=== PATIENT | male | born 1980 | race Caucasian/White ===

== ENCOUNTER 2024-12-20 11:59 | Emergency (ER) | payer OTHER, SELFPAY ==
--- NOTE | ~2024-12-20 | CT_ITS ---
CLINICAL HISTORY: syncopal episode, headache CT head without contrast Comparison: None provided Findings: No intra-axial mass, midline shift, hydrocephalus, or acute hemorrhage. No significant atrophy-like change or white matter disease. The visualized paranasal sinuses and mastoid air cells are normal. The orbits are within normal limits. There is no acute fracture. IMPRESSION: 1. No acute intracranial findings. This document has been electronically signed by: Padmini Freitas MD on 12/20/2024 15:29:23
[2024-12-20 12:07] VITALS: BP 128/75; PULSE 83; RESP 18; TEMP 36.7; O2SAT 99; BMI 25.7
--- NOTE | 2024-12-20 12:12 | ED.GENADULT ---
HPI - General Adult General Chief complaint: Syncope Stated complaint: dizziness, fainted 12/18, every time he gets up Time Seen by Provider: 12/20/24 13:46 History of Present Illness ED Provider: Kwan RAJAN narrative: The patient is a 44-year-old male who is on an antidepressant medication but no other medications and who does not have any other significant past medical history. The patient says that over the past few weeks he has had episodes of dizzy spells. He has had 2 or 3 dizzy spells over the last 2 weeks that seemed to be related to standing up or position changes. Two days ago, on Saturday evening, he was home. He has been looking at his phone while sitting down for awhile. He was in his living room. He got up to talk to his in the kitchen. He says that he stood up and walked to the kitchen and then felt a fairly intense kind of dizziness that he describes as room spinning dizziness. He told his he felt dizzy. She says that he seemed to briefly pass out and collapse. He fell and hit his head at the time. She thought that he was unconscious and slapped him on his chest at which point he woke up. He apparently asked her if he had been asleep but otherwise awoke with a normal mental status. The the patient's at that time wanted to call 911 but the patient dissuaded her. He apparently told her that he felt fine and did not want to go to the hospital. He had no significant headache. He stayed home that evening but yesterday morning had another episode of dizziness which was not associated with the passing out. At that point he had his went to an urgent care center where they were referred to the emergency room at [facility]. They went to the emergency room at [facility] but after 14 hours of waiting in the waiting room they left and went home. They came here this morning instead. Today the patient says that he has developed a headache. It feels similar to previous migraine headaches. He says he often gets significant migraine headaches that he mostly manages at home with [id number] medications and resting in a dark room. He does not feel that he has any neck stiffness but he does feel that he has some pain in the right anterior neck that is worse when he turns his head to the left. He says that he noticed this pain yesterday while waiting in the waiting room at [facility] and he thought that perhaps it was related to a cool breeze in the waiting room. The patient has a history of nystagmus. Related Data Allergies Allergy/AdvReac Type Severity Reaction Status Date / Time No Known Allergies Allergy Verified 12/20/24 12:11 Review of Systems Review of Systems: Yes all other systems are reviewed and are negative [facility] Social History Social History Smoked in Last 30 Days: No Use of substances other than those prescribed or required for medical reasons: No Advance Directives: No Advance Directives Information Provided: No Do you have a plan to hurt others: No Plan Physical Exam ED Vital Signs: Vital Signs - 24 hr 12/20/24 12:07 12/20/24 14:01 12/20/24 14:02 Temperature 98.0 F Pulse Rate 83 68 69 Respiratory Rate 18 Blood Pressure 128/75 128/84 122/85 Pulse Oximetry 99 Oxygen Delivery Method Room Air 12/20/24 14:02 12/20/24 15:10 12/20/24 16:06 Temperature Pulse Rate 72 71 Respiratory Rate 18 Blood Pressure 119/85 122/86 Pulse Oximetry 98 99 Oxygen Delivery Method Room Air Room Air 12/20/24 16:54 Temperature 98.0 F Pulse Rate 71 Respiratory Rate 18 Blood Pressure 122/86 Pulse Oximetry 99 Oxygen Delivery Method Room Air BMI result Body Mass Index 25.7 Const Other: The patient is awake and alert with a normal mental status. He does not appear obviously acutely ill. He is pleasant and cooperative. HENMT Other: Face is symmetrical. Mucous membranes are moist. The posterior pharynx is normal. The tongue is midline. Eyes Other: Pupils are round, equal, and reactive to light. Extraocular movements are intact although he has nystagmus with eye movements in both directions. He says he has a history of nystagmus. Neck Other: The patient can very easily touch his chin to his chest. He seems to have a supple neck. He has some mild tenderness in the region of his right sternocleidomastoid muscle and some discomfort in the region of the right sternocleidomastoid when he turns his head to the left. Resp Effort & Inspection: normal respiratory effort Auscultation: clear to auscultation bilaterally Cardio Rate: regular rate Rhythm: regular rhythm Heart sounds: S1 normal heart sound present and S2 normal heart sound present GI Other: Abdomen is soft and nontender Skin Other: The skin is dry and unremarkable General skin exam: no rashes or lesions noted Neuro Other: The patient is awake and alert with a normal mental status. GCS is 15. Pupils are round, equal, and reactive to light. There is no sign of a Jian syndrome. The patient has nystagmus when checking his extraocular movements. He says he has a history of nystagmus. Extraocular movements are otherwise intact. The face is symmetrical. Speech is clear. He has normal strength and sensation in his extremities. No pronator drift. Finger-nose is normal. Heel-angel is normal. Aside from the nystagmus of what she says he has a history is neurological exam is normal with a supple neck. No ptosis, no myosis. Extrem Other: There is no calf swelling or tenderness. No asymmetry. No peripheral edema. Course Course Course Narrative: RME, this is a rapid medical exam performed by Chance Enriquez please refer to primary provider for complete H&P- 44-year-old male presents for evaluation of dizziness. He reports his dizziness is worse upon standing. He reports a syncopal episode on Saturday after working in the sun all day. Plan for cardiac workup with EKG, labs and we will also check orthostatic vital signs. Medications Administered Discontinued Medications Generic Name Dose Route Start Last Admin Trade Name Freq PRN Reason Stop Dose Admin Sodium Chloride 1,000 mls @ 999 mls/hr 12/20/24 15:00 12/20/24 16:15 Ns IV 12/20/24 16:00 Infused .Q1H1M JACOB Infusion Ketorolac Tromethamine 10 mg 12/20/24 15:12 12/20/24 15:33 Ketorolac Tromethamine 15 Mg/Ml Vial IVPUSH 12/20/24 15:13 10 mg ONCE ONE Administration Metoclopramide HCl 10 mg 12/20/24 15:12 12/20/24 15:33 Metoclopramide Hcl 10 Mg/2 Ml Vial IVPUSH 12/20/24 15:13 10 mg ONCE ONE Administration Medical Decision Making Medical Decision Making MDM Narrative: The patient is a 44-year-old male who says that he has a history of nystagmus. He also says he has a history of migraine headaches. Two days ago on Saturday evening he had an episode of what sounds like a syncopal episode at his home. He had gotten up from the couch in his living room and walked into the kitchen when he abruptly felt a room spinning dizziness and then collapsed. His tried to catch him. He struck his head against the wall when he fell. He may have had a brief loss of consciousness but he came to immediately. His wanted to call 911 but he said that he felt fine and did not want to come to the hospital. He did not have a significant headache at that time. He stayed home and the next morning he had another episode of dizziness but without loss of consciousness. He had his went to an urgent care where they were advised to go to [facility]. They went to the emergency room [facility] but after 14 hours awaiting in the waiting room they left without being seen. He now comes to the emergency room here. When I 1st saw the patient I thought he looked quite well. A head CT was done as well as labs and an EKG. All of these were unremarkable. My next went to see him he looked less well as if he has a headache. He said that he had developed a migraine headache while he was in the emergency room. He was treated with ketorolac and metoclopramide without obvious significant improvement. However the patient said that the headache is definitely typical of his usual migraine headaches and he was anxious to go home and try to rest at home. My overall impression is that the patient probably had an episode of the orthostatic syncope on Saturday evening. I think this would be a very unlikely to be a case of any kind of cervical artery dissection. I had offered the patient the option of doing a CT angio of the head and neck to ensure that his vasculature was normal but the patient indicates that he has insurance with a very high deductible and he is interested in avoiding any excessive bills. Since my clinical suspicion for cervical artery dissection or for a subarachnoid hemorrhage is very low I thought forgoing the angiogram was reasonable. The patient has a primary care doctor and will follow up soon with his primary care doctor. He will return to the emergency room if worse. Lab Data 12/20/24 12:23 12/20/24 12:23 Labs: Lab Results 12/20/24 Range/Units 12:23 WBC 7.4 (4.8-10.8) X10*3/uL RBC 4.84 (4.60-5.80) X10*6/uL Hgb 14.2 (14.0-18.0) g/dl Hct 42.4 (42.0-52.0) % MCV 87.6 (80.0-98.0) fL MCH 29.3 (27.0-33.0) pg MCHC 33.5 (31.0-36.0) g/dl RDW 12.7 (11.0-16.0) % Plt Count 232 (160-400) X10*3/uL MPV 9.0 L (9.4-12.4) fL Immature Gran % (Auto) 0.3 (0.0-0.4) % Neut % (Auto) 60.3 (45-73) % Lymph % (Auto) 31.5 (20-40) % Grand % (Auto) 5.5 (2-11) % Eos % (Auto) 1.5 (0-4) % Baso % (Auto) 0.9 (0-2) % Lymph # (Auto) 2.3 (1.2-4.9) X10*3/uL Grand # (Auto) 0.4 (0.1-1.2) X10*3/uL Eos # (Auto) 0.1 (0.0-0.4) X10*3/uL Baso # (Auto) 0.1 (0.0-0.2) X10*3/uL Abs Immat Gran (auto) 0.02 (0.00-0.03) X10*3/uL Absolute Neuts (auto) 4.5 (2.0-8.3) x10*3/uL Absolute Nucleated RBC 0.000 (0.0-0.012) X10*3/uL Nucleated RBC % (auto) 0.0 (0.0-0.2) /100WBC Sodium 143 (135-145) mmol/L Potassium 4.6 (3.3-5.1) mmol/L Chloride 106 (96-108) mmol/L Carbon Dioxide 28 (22-29) mmol/L Anion Gap 14 (12-20) BUN 15 (9-16) mg/dL Creatinine 0.99 (0.5-1.4) mg/dL Estim Creat Clear Calc 97.2 Estimated GFR > 60 Random Glucose 110 (60-115) mg/dL Calcium 9.6 (8.4-10.2) mg/dL Magnesium 2.1 (1.6-2.6) mg/dL Total Bilirubin 0.8 (0.0-1.0) mg/dL AST 23 (5-37) U/L ALT 18 (0-40) U/L Alkaline Phosphatase 50 (39-117) U/L Troponin I High Sens < 2.7 (<3.5-35.0) ng/L B-Natriuretic Peptide < 10 (<100) pg/mL Total Protein 6.8 (6.5-8.0) g/dL Albumin 4.5 (3.5-5.0) g/dL Lipase 29 (8-78) U/L Discharge Plan Discharge Clinical Impression: Syncope and collapse, Orthostatic dizziness, Headache, History of nystagmus Patient Disposition: Home, Self-Care Additional Instructions: Your testing in the emergency room does not reveal any obvious concerns. The CAT scan of your head is normal. Your EKG and your blood testing are unremarkable. I do not have a very good explanation for why you felt so dizzy and collapsed the other day. Please be careful with changing positions. Get up slowly when changing positions. Please try to rest and take it easy tonight. You has a work note for no work tomorrow. Please try to make sure that you rest and eat well. Please contact your regular doctor's office tomorrow for a follow up appointment to discuss this episode further. Return to the emergency room if significantly worse. Referrals: Norris Hurt MD [Primary Care Provider, Internal Medicine] Stand Alone Forms: Work/School Release Interventions: ED Discharge Assessment Last Done: 12/20/24 16:54 Discharge Date/Time: 12/20/24 16:54 Print Language: Estonian
--- NOTE | 2024-12-20 12:13 | ECG_ITS ---
Test Reason : SYNCOPE Blood Pressure : */* mmHG Vent. Rate : 75 BPM Atrial Rate : 75 BPM P-R Int : 116 ms QRS Dur : 82 ms QT Int : 392 ms P-R-T Axes : 87 75 73 degrees QTcB Int : 437 ms Normal sinus rhythm Normal ECG No previous ECGs available Referred By: Rafi Enriquez Electronically Signed By: LYNDA BLAIR
[2024-12-20 12:41] LABS: MANUAL DIFF FLAG NO
[2024-12-20 12:42] LABS: Hematocrit 42.4 % (42.0-52.0); Hemoglobin 14.2 g/dl (14.0-18.0); Imm Gran Abs Auto 0.02 X10*3/uL (0.00-0.03); Imm Gran Pct Auto 0.3 % (0.0-0.4); Lymphocytes Absolute Auto 2.3 X10*3/uL (1.2-4.9); Mean Corpuscular HGB Conc 33.5 g/dl (31.0-36.0); Mean Corpuscular Hemoglobin 29.3 pg (27.0-33.0); Mean Corpuscular Volume 87.6 fL (80.0-98.0); NRBC Abs Auto 0.000 X10*3/uL (0.0-0.012); NRBC Pct Auto 0.0 /100WBC (0.0-0.2); Platelet Count 232 X10*3/uL (160-400); Red Blood Count 4.84 X10*6/uL (4.60-5.80); White Blood Count 7.4 X10*3/uL (4.8-10.8)
[2024-12-20 12:57] LABS: Alanine Aminotransferase 18 U/L (0-40); Albumin Level 4.5 g/dL (3.5-5.0); Alkaline Phosphatase 50 U/L (39-117); Anion Gap 14 (12-20); Aspartate Amino Transferase 23 U/L (5-37); Blood Urea Nitrogen 15 mg/dL (9-16); Calcium 9.6 mg/dL (8.4-10.2); Carbon Dioxide 28 mmol/L (22-29); Chloride 106 mmol/L (96-108); Creatinine Clr Calc Pharmacy 97.2; Estimated Glomerular Filt Rate > 60; Lipase 29 U/L (8-78); Magnesium 2.1 mg/dL (1.6-2.6); Potassium 4.6 mmol/L (3.3-5.1); Sodium 143 mmol/L (135-145); Total Protein 6.8 g/dL (6.5-8.0)
[2024-12-20 13:01] LABS: B Type Natriuretic Peptide < 10 pg/mL (<100)
[2024-12-20 13:13] LABS: Troponin-I High Sensitivity < 2.7 ng/L (<3.5-35.0)
[2024-12-20 14:01] VITALS: BP 128/84; PULSE 68
[2024-12-20 14:02] VITALS: BP 119/85; BP 122/85; PULSE 69; PULSE 72
[2024-12-20 15:10] VITALS: BP 122/86; PULSE 71; RESP 18; O2SAT 98
[2024-12-20 16:06] VITALS: O2SAT 99
[2024-12-20 16:54] VITALS: BP 122/86; PULSE 71; RESP 18; TEMP 36.7; O2SAT 99
== END 2024-12-20 16:54 | disposition home or self-care (01) ==
PROVIDERS: Physician Assistant; Emergency Provider Emergency Medicine; PCP Internal Medicine
DX: R55 Syncope and collapse (principal); R42 Dizziness and giddiness; H55.00 Unspecified nystagmus; R51.9 Headache, unspecified
CPT/HCPCS: 36415; 70450; 80053; 83690; 83735; 83880; 84484; 85025; 93005; 96361; 96374; 96375; 99284; 99285; J1885; J2765

== ENCOUNTER → 2024-12-20 12:13 | Outpatient (BNV) | payer OTHER, SELFPAY | PROVIDERS: Emergency Provider Emergency Medicine; PCP Internal Medicine; Visit Provider Internal Medicine | DX: R55 Syncope and collapse (principal) | CPT/HCPCS: 93010 ==

== ENCOUNTER → 2024-12-20 13:59 | Outpatient (BNV) | payer OTHER, SELFPAY | PROVIDERS: Emergency Provider Emergency Medicine; PCP Internal Medicine; Visit Provider Radiology Diagnostic Radiology | DX: R55 Syncope and collapse (principal) | CPT/HCPCS: 70450 ==